=== PATIENT | male | born 1965 | race Caucasian/White ===

== ENCOUNTER → 2017-03-18 | Outpatient (CLI) | payer BC ==
[~2017-03-18] MED LIST: TAMS0.4C38 PO
--- NOTE | 2017-03-18 11:50 | DIAGNOSTIC IMAGING REPORT ---
KUB HISTORY: 52 years-old Male NEPHROLITHIASIS COMPARISON: KUB 02/28/2016 TECHNIQUE: Abdominal radiograph FINDINGS: Left-sided nephrolithiasis redemonstrated with calculi measuring up to 3 mm. No calculi are seen along the course of either ureter or the right kidney. Phlebolith of the right hemipelvis is unchanged. The bowel gas pattern is nonobstructive. No fracture identified. IMPRESSION: Stable appearance of the left-sided nephrolithiasis. The above report was generated using voice recognition software. It may contain grammatical, syntax or spelling errors. Electronically signed by: Trae Tobias M.D. 03/18/2017 11:49 AM Dictated Date/Time: 03/18/2017 11:47 AM
[2017-03-18 12:55] LABS: BLOOD UREA NITROGEN 14 mg/dl (7-18); BUN/CREATININE RATIO 12.3 (10-20)
== END | disposition home or self-care (01) ==
LOC: C.LAB 10:49
PROVIDERS: ATTEND Urology
DX: N20.0 Calculus of kidney (principal); N45.1 Epididymitis; N50.812 Left testicular pain

== ENCOUNTER → 2018-03-15 | Outpatient (CLI) | payer BC ==
--- NOTE | 2018-03-15 10:53 | DIAGNOSTIC IMAGING REPORT ---
KUB CLINICAL HISTORY: 53 years-old Male presenting with N40.1 history of kidney stones. TECHNIQUE: Single supine view of the abdomen was obtained. COMPARISON: 03/18/2017. FINDINGS: Nonobstructive bowel gas pattern. No gross pneumoperitoneum. Calcifications project over the bilateral kidneys most prominently at the lower pole of the left kidney. No radiographic evidence of ureteral calculi. Calcification in the right hemipelvis is unchanged from prior. Transitional lumbosacral anatomy of L5. Lung bases clear. IMPRESSION: 1. Bilateral nephrolithiasis. No radiographic evidence of ureteral calculus. Electronically signed by: Willy Canela M.D. 03/15/2018 10:51 AM Dictated Date/Time: 03/15/2018 10:50 AM
[2018-03-15 11:34] LABS: BLOOD UREA NITROGEN 17 mg/dl (7-18); CREATININE 0.94 mg/dl (0.60-1.40)
== END | disposition home or self-care (01) ==
LOC: C.RAD 09:56
PROVIDERS: ATTEND Urology
DX: N40.1 Benign prostatic hyperplasia with lower urinary tract symptoms (principal); N20.0 Calculus of kidney